=== PATIENT | male | born 1955 | race African-American/Black ===

== ENCOUNTER 2019-05-08 23:29 | Inpatient (IN) | payer MEDICAID, OTHER ==
[~2019-05-08] VITALS: Ht 172.7 cm; Wt 96.0 kg
[~2019-05-08 23:29] MED LIST: GLIP5TAB12 PO; METF-370 PO
[2019-05-09] VITALS (7 sets, daily range): BP systolic 86–143; BP diastolic 60–81
[2019-05-09 00:19] LABS: Basophils # (auto) 0.1 uL; Eosinophils # (auto) 0.3 uL; Eosinophils % (auto) 2.9 % (0.0-7.0); Hematocrit 36.6 % (41.0-53.0); Hemoglobin 11.6 g/dL (13.5-17.5); Lymphocytes # (auto) 1.7 uL; Lymphocytes % (auto) 20.2 % (10.0-50.0); Mean Corpuscular Hemoglobin 28.8 pg (28.0-32.0); Mean Corpuscular Hgb Conc. 31.6 g/dL (32.0-36.0); Mean Corpuscular Volume 91.2 fL (80.0-100.0); Monocytes % (auto) 11.1 % (0.0-12.0); Neutrophils # (auto) 5.5 uL; Neutrophils % (auto) 64.8 % (37.0-80.0); Nucleated Red Blood Cells % 0.1 %; Platelet Count (auto) 221 10^3/uL (140-450); Red Blood Cells 4.02 10^6/uL (4.5-5.90); Red Cell Distribution Width 16.2 % (11.8-14.3); White Blood Cell 8.6 10^3/uL (4.4-10.8)
[2019-05-09 00:34] LABS: Alanine Aminotransferase 136 U/L (16-61); Anion Gap 8 (5-15); Aspartate Aminotransferase 96 U/L (15-37); BUN/Creatinine Ratio 25.3; Calcium 8.2 mg/dL (8.5-10.1); Carbon Dioxide 22 mmol/L (21-32); Chloride 108 mmol/L (98-107); GFR African American 23 mL/min; GFR Non-African American 19 mL/min; Glucose 148 mg/dL (74-106); Sodium 138 mmol/L (136-145)
[2019-05-09 00:36] LABS: Blood Urea Nitrogen 89 mg/dL (7-18); Potassium 5.8 mmol/L (3.5-5.1)
[2019-05-09 00:40] LABS: Alkaline Phosphatase 261 U/L (45-117); Bilirubin, Total 0.3 mg/dL (0.2-1.0)
[2019-05-09] MEDS ORDERED: HYDROcodone-ACET 10/325MG TAB PO ONE (01:00)
[2019-05-09] MEDS ORDERED: FUROSEMIDE 20 MG/2 ML VIAL IV ONE ×2 (02:00→04:00)
[2019-05-09 02:05] LABS: INR 1.34 (0.9-1.15); Partial Thromboplastin Time 28.7 sec (23.64-32.05)
[2019-05-09] MEDS ORDERED: NITROGLYCERIN 0.4 MG SL TAB SL PRN (03:15)
[2019-05-09] MEDS ORDERED: DEXTROSE (50%) 50ML SYRG IV PRN (03:15)
[2019-05-09] MEDS ORDERED: MORPHINE SULF INJ 2 MG/ML SYRINGE 1ML IV PRN (03:15)
[2019-05-09] MEDS ORDERED: SODIUM ZIRCONIUM CYCL 10 GM PAK PO ONE (03:45)
--- NOTE | 2019-05-09 05:00 | NUR ---
Telemetry admit from [facility] admitted to Telemetry unit. Patient oriented to SHIMON YOUSIF, primary RN, unit, room 284, bed B, and unit policies regarding patient care and visiting hours. Patient now on continuous telemetry monitoring, tele box #66 and telemetry reading on arrival to unit is SR. Patient placed on bedside oxygen, weighed by bedscale and encouraged to call if they need something. Call light explained and placed within reach. Yung catheter is in place. All questions and concerns addressed, patient verbalized understanding.
[2019-05-09] MEDS: InsuLIN REG 1unit/0.01ml Soln (100units/ml) SC SCH ×4 (06:19→23:37)
[2019-05-09] MEDS: ACCU-CHEK COMFORT CURVE STRIP VI SCH ×4 (06:19→23:37)
--- NOTE | 2019-05-09 07:30 | NUR ---
Opening Shift Note Assumed care of patient, awake and alert. No S/S of distress/SOB or pain. Bed is in lowest position with 2x side rails up for safety. Call light is within reach. Instructed on POC and to call for assist PRN, will continue to monitor for changes Q1hr and PRN.
[2019-05-09] MEDS: APIXABAN 5 MG TAB PO SCH ×2 (09:18→20:46)
[2019-05-09] MEDS: PANTOPRAZOLE 40 MG TAB PO SCH (09:18)
[2019-05-09] MEDS: CARVEDILOL 3.125 MG TAB PO SCH ×2 (09:21→20:46)
--- NOTE | 2019-05-09 09:35 | NUR ---
Paged hospitalist Potassium of 6.1, paged hospitalist. Waiting for call back.
[2019-05-09] MEDS ORDERED: CALCIUM GLUC 4.65meq/50ml D5AE 50 ML IV ONE (12:45)
[2019-05-09] MEDS ORDERED: SODIUM BICARBONATE 8.4% INJ 50ML SYRINGE IV ONE (12:45)
[2019-05-09] MEDS ORDERED: ALBUTEROL SULF 2.5 MG/0.5ML(0.5%) NEB SOLN NEB ONE (12:45)
[2019-05-09] MEDS ORDERED: FUROSEMIDE 40 MG/4 ML VIAL IV ONE (12:45)
[2019-05-09] MEDS ORDERED: DEXTROSE (50%) 50ML SYRG IV ONE (12:45)
[2019-05-09] MEDS ORDERED: InsuLIN REG 1unit/0.01ml Soln (100units/ml) IV ONE (12:45)
[2019-05-09] MEDS: SODIUM ZIRCONIUM CYCL 10 GM PAK PO SCH ×2 (12:58→23:16)
[2019-05-09] MEDS ORDERED: SODIUM BICARBONATE 8.4 % INJ 50ML VIAL IV ONE (13:00)
--- NOTE | 2019-05-09 13:04 | NUR ---
Dr. Huston / nephro at bed side to see pt, doctor informed of the potassium level of 6.1, orders received, doctor discussed plan of care with pt.
[2019-05-09] MEDS ORDERED: SODIUM CHLORIDE 0.9% 500 ML IV ONE (13:15)
[2019-05-09] MEDS ORDERED: LACTULOSE 20Gm/30ML SOLN PO ONE (13:15)
[2019-05-09] MEDS ORDERED: ALBUTEROL SULF 2.5 MG/0.5ML(0.5%) NEB SOLN NEB PRN (14:45)
[2019-05-09 15:54] LABS: Anion Gap 6 (5-15); BUN/Creatinine Ratio 28.9; Calcium 8.4 mg/dL (8.5-10.1); Carbon Dioxide 24 mmol/L (21-32); Chloride 106 mmol/L (98-107); GFR African American 23 mL/min; GFR Non-African American 19 mL/min; Glucose 86 mg/dL (74-106); Potassium 5.2 mmol/L (3.5-5.1); Sodium 136 mmol/L (136-145)
[2019-05-09 16:07] LABS: Blood Urea Nitrogen 102 mg/dL (7-18)
--- NOTE | 2019-05-09 16:30 | NUR ---
Rodrigo at bedside To insert Robert catheter.
[2019-05-09 16:38] LABS: Urine Bacteria FEW /hpf (None Seen); Urine Blood 1+ /uL (Negative); Urine Mucus FEW (None Seen); Urine Specific Gravity 1.011 (1.001-1.035); Urine WBC 4 /hpf (0 - 3)
[2019-05-09] MEDS ORDERED: HEPARIN 1,000 UNITS/ml 1ML VIAL IV ONE (16:45)
[2019-05-09 16:48] LABS: Alcohol, Urine < 3.0 mg/dL (0-5); Amphetamine Screen, Urine NEGATIVE (NEGATIVE); Barbiturate Scree,Urine NEGATIVE (NEGATIVE); Benzodiazephine Screen, Urine NEGATIVE (NEGATIVE); Cannabinoid Screen, Urine NEGATIVE (NEGATIVE); Cocaine Screen, Urine NEGATIVE (NEGATIVE); Opiate Scree,Urine NEGATIVE (NEGATIVE); Phencyclidine Screen, Urine NEGATIVE (NEGATIVE)
--- NOTE | 2019-05-09 17:00 | NUR ---
IV insertion IV access obtained, via clean sterile technique by inserting 22 gauge catheter at LT UPPER CHEST after 2 attempts. IV secured properly. No trauma to site. Patient tolerated well.
[2019-05-09] MEDS ORDERED: FUROSEMIDE 40 MG/4 ML VIAL IV SCH (18:00)
--- NOTE | 2019-05-09 18:47 | NUR ---
SALINE BOLUS RUNNING AT THIS TIME, WILL ENDORSE FOR MORTGAGE BANKER TO START THE LASIX DRIP AFTER THE BOLUS PER DR. SOLORIO'S ORDERS.
[2019-05-09] MEDS ORDERED: APIX5TAB PO (19:05)
[2019-05-09] MEDS ORDERED: FURO40TA4 PO (19:05)
[2019-05-09] MEDS ORDERED: ATOR40TA52 PO (19:05)
[2019-05-09] MEDS ORDERED: CARV3.1240 PO (19:05)
--- NOTE | 2019-05-09 20:00 | NUR ---
Opening Shift Note Assumed care of patient, awake and alert. No S/S of distress/SOB or pain. Saline bolus finished. Patient started on drip medication. Instructed on POC and to call for assist PRN, will continue to monitor for changes Q1hr and PRN.
[2019-05-09] MEDS: FUROSEMIDE INJECTION 100 MG in D5W 5% 90 ML IV SCH (20:12)
--- NOTE | 2019-05-09 20:16 | NUR ---
Respiratory note: PT ASSESSED FOR PRN MED NEB TX. PT IS CURRENTLY ON 2 L/M NC: HR 84, RR 18, SPO2 100%. PT SHOWS NO S/S OF SOB OR RESPIRATORY DISTRESS. MED NEB TX NOT INDICATED AT THIS TIME. PT AWARE TO CALL RESPIRATORY IF SOB OCCURS. WILL CONTINUE TO MONITOR.
[2019-05-09] MEDS: ATORVASTATIN 20 MG TAB PO SCH (20:47)
--- NOTE | 2019-05-09 23:59 | NUR ---
HOSPITALIST PAGED BM OF PATIENT INSPECTED. BLOOD FOUND IN STOOL. PATIENT STATES THIS IS NEW. WILL INFORM HOSPITALIST. WILL AWAIT CALL BACK OR ORDERS.
[2019-05-10 05:07] VITALS: BP 141/75
[2019-05-10] MEDS: InsuLIN REG 1unit/0.01ml Soln (100units/ml) SC SCH ×3 (05:34→17:51)
[2019-05-10] MEDS: SODIUM ZIRCONIUM CYCL 10 GM PAK PO SCH ×3 (05:34→22:12)
[2019-05-10] MEDS: ACCU-CHEK COMFORT CURVE STRIP VI SCH ×3 (05:34→17:51)
[2019-05-10 07:12] LABS: Basophils # (auto) 0.1 uL; Basophils % (auto) 0.6 % (0.0-2.0); Eosinophils # (auto) 0.2 uL; Eosinophils % (auto) 2.4 % (0.0-7.0); Hematocrit 36.8 % (41.0-53.0); Hemoglobin 11.5 g/dL (13.5-17.5); Lymphocytes # (auto) 1.9 uL; Lymphocytes % (auto) 19.7 % (10.0-50.0); Mean Corpuscular Hemoglobin 29.4 pg (28.0-32.0); Mean Corpuscular Hgb Conc. 31.3 g/dL (32.0-36.0); Monocytes # (auto) 0.9 uL; Monocytes % (auto) 9.5 % (0.0-12.0); Neutrophils # (auto) 6.4 uL; Neutrophils % (auto) 67.8 % (37.0-80.0); Nucleated Red Blood Cells % 0.2 %; Platelet Count (auto) 238 10^3/uL (140-450); Red Blood Cells 3.91 10^6/uL (4.5-5.90); Red Cell Distribution Width 16.5 % (11.8-14.3); White Blood Cell 9.5 10^3/uL (4.4-10.8)
--- NOTE | 2019-05-10 07:30 | NUR ---
Opening Shift Note RECEIVED REPORT FROM NOC RN. Assumed care of patient, awake and alert. PATIENT ON OXYGEN AT 2 LPM VIA NASAL CANNULA WITH no S/S of distress/SOB or pain. BED IN LOWEST, LOCKED POSITION WITH SIDERAILS UP x2 AND CALL LIGHT WITHIN REACH. Instructed on POC and to call for assist PRN, will continue to monitor for changes Q1hr and PRN.
[2019-05-10 07:33] LABS: Calcium 8.4 mg/dL (8.5-10.1); Potassium 4.6 mmol/L (3.5-5.1)
[2019-05-10 07:37] LABS: Magnesium 2.8 mg/dL (1.6-2.6)
[2019-05-10 07:44] LABS: BUN/Creatinine Ratio 32.9; Bilirubin, Total 0.4 mg/dL (0.2-1.0); Total Protein 6.7 g/dL (6.4-8.2)
[2019-05-10 08:00] VITALS: BP 106/72
[2019-05-10] MEDS: APIXABAN 5 MG TAB PO SCH ×2 (09:33→22:11)
[2019-05-10] MEDS: PANTOPRAZOLE 40 MG TAB PO SCH (09:33)
[2019-05-10] MEDS: CARVEDILOL 3.125 MG TAB PO SCH ×2 (09:33→22:12)
[2019-05-10] MEDS: ACETAMINOPHEN 325 MG TAB PO PRN ×2 (09:39→23:05)
--- NOTE | 2019-05-10 09:48 | NUR ---
RT NOTE: PRN BREATHING TX. NOT INDICATED AT THIS TIME. NO S/S OF SOB. PT. HR 84, RR 14, POX 96% R/A. PT. AWARE TO NOTIFY RN IF BREATHING TX. IS NEEDED.
[2019-05-10] MEDS ORDERED: APIX5TAB PO (11:03)
[2019-05-10] MEDS ORDERED: FURO40TA4 PO (11:03)
[2019-05-10] MEDS ORDERED: ATOR40TA52 PO (11:03)
[2019-05-10 12:00] VITALS: BP 107/67
[2019-05-10] MEDS: FUROSEMIDE INJECTION 100 MG in D5W 5% 90 ML IV SCH (14:01)
[2019-05-10 14:09] LABS: Hepatitis B Surface Antibody Negative
[2019-05-10 14:48] LABS: Hepatitis A Total Antibody Negative
[2019-05-10 15:30] LABS: Hepatitis B Surface Antigen Negative (Negative)
[2019-05-10 15:31] LABS: Hepatitis B Core Total AB Negative; Hepatitis C Antibody Negative (Negative)
--- NOTE | 2019-05-10 15:36 | NUR ---
D/C Planning Per SS Consult for Chair Time Dialysis. Contact [facility] Ph:) Fax:( [phone]) faxed medical records. Will be following up tomorrow.
[2019-05-10 17:00] VITALS: BP 122/73
--- NOTE | 2019-05-10 19:30 | NUR ---
Opening Shift Note Assumed care of patient, awake and alert x4. Patient denies pain at this time. Patient is on 3L NC, no signs/symptoms of distress noted at this time. Instructed on plan of care and to call for assistance as needed, patient verbalized understanding. Bed is locked in lowest position, side rails x 2 are up, call light is within reach, and bed alarm is on.
[2019-05-10] MEDS: IPRATROPIUM BROM 0.5 MG/2.5ML INH SOL NEB PRN (20:07)
[2019-05-10 22:00] VITALS: BP 121/76
[2019-05-10] MEDS: ATORVASTATIN 20 MG TAB PO SCH (22:11)
[2019-05-11] MEDS: ACCU-CHEK COMFORT CURVE STRIP VI SCH ×4 (01:31→18:54)
[2019-05-11] MEDS: InsuLIN REG 1unit/0.01ml Soln (100units/ml) SC SCH ×4 (01:31→18:54)
[2019-05-11] MEDS: TEMAZEPAM 15 MG CAP PO PRN (01:41)
[2019-05-11 05:00] VITALS: BP 131/80
[2019-05-11] MEDS: SODIUM ZIRCONIUM CYCL 10 GM PAK PO SCH (05:59)
[2019-05-11] MEDS ORDERED: SODIUM CHL 0.9% 1000 ML BAG XX ONE (07:00)
[2019-05-11 07:29] LABS: Albumin 3.1 g/dL (3.4-5.0); Calcium 8.5 mg/dL (8.5-10.1); Potassium 4.3 mmol/L (3.5-5.1)
--- NOTE | 2019-05-11 07:30 | NUR ---
CLOSING SHIFT NOTE Patient is sitting on the side of the bed with even and unlabored respirations noted. Patient is on 3L NC, no signs/symptoms of distress noted at this time. Bed is locked in lowest position, side rails x 3 are up, call light is within reach, and bed alarm is on. Endorsed patient care to Kya GALVAN.
[2019-05-11 07:31] LABS: BUN/Creatinine Ratio 30.6
--- NOTE | 2019-05-11 07:44 | NUR ---
STOOL OCCULT COLLECTED AND SENT TO LAB.
[2019-05-11 07:46] LABS: Bilirubin, Total 0.4 mg/dL (0.2-1.0); Total Protein 7.2 g/dL (6.4-8.2)
--- NOTE | 2019-05-11 07:53 | NUR ---
Critical Lab notified by Ingrid of a critical lab value. BUN is 90. Trending down. MD already aware. Patient receiving dialysis today.
[2019-05-11 08:00] VITALS: BP 127/60
--- NOTE | 2019-05-11 08:20 | NUR ---
Opening Shift Note Received report on the patient. Awake lying in bed. Patient shows no signs of distress at this time. Discussed plan of care with the patient and family. Bed is in the lowest position, side rails up x2, and call light is within reach.
[2019-05-11 09:00] VITALS: BP 139/84
[2019-05-11] MEDS ORDERED: ALBUMIN 25% 100 ML IV ONE (09:45)
--- NOTE | 2019-05-11 10:57 | NUR ---
MD Discharge Appt Doctor Delvis at bedside. Ordered dialysis for today and tomorrow. Patient needs to have a follow up doctors appointment with Dr. Edmondson 1 week after discharge.
[2019-05-11] MEDS ORDERED: PROMETHAZINE HCL 25 MG/ML 1ML IV ONE (11:15)
[2019-05-11 13:00] VITALS: BP 140/85
[2019-05-11] MEDS: APIXABAN 5 MG TAB PO SCH ×2 (14:20→22:56)
[2019-05-11] MEDS: PANTOPRAZOLE 40 MG TAB PO SCH (14:21)
[2019-05-11] MEDS: CARVEDILOL 3.125 MG TAB PO SCH ×2 (14:21→22:56)
--- NOTE | 2019-05-11 14:42 | NUR ---
D/C Planning Followed up call to [facility] dialysis spoke to Marisela. Per Marisela from [facility] Pt chair time will be Tuesday, , Saturdays at 14:45 and needs to arrived 15 minutes early to [id number] [place] [address]. Addendum: 05/11/19 at 1448 by AURY ATKINS Amended: Links added.
[2019-05-11] MEDS ORDERED: GABAPENTIN 300 MG CAP PO ONE (16:15)
[2019-05-11 17:00] VITALS: BP 137/84
[2019-05-11] MEDS: FUROSEMIDE INJECTION 100 MG in D5W 5% 90 ML IV SCH (18:53)
--- NOTE | 2019-05-11 19:30 | NUR ---
Opening Shift Note Assumed care of patient. Patient awake and alert. No S/S of distress/SOB or pain. Instructed on POC and to call for assist PRN, will continue to monitor for changes. Bed locked in lowest position and bed rails up x2. Call light within reach.
--- NOTE | 2019-05-11 20:30 | NUR ---
Patient disconnected IV line from IV site and found on room air. Patient stated that he did not pull out the IV and he is not sure how it came apart. Addendum: 05/11/19 at 2342 by BRENDA IVORY RN RN Alisha nichols
--- NOTE | 2019-05-11 20:40 | NUR ---
Sitter at bedside
[2019-05-11 22:00] VITALS: BP 112/80
[2019-05-11] MEDS: ATORVASTATIN 20 MG TAB PO SCH (22:56)
[2019-05-11] MEDS: GABAPENTIN 300 MG CAP PO SCH (22:56)
--- NOTE | 2019-05-11 23:34 | NUR ---
RT NOTE PRN ASSESSMENT DONE PRN NOT INDICATED AT THIS TIME NO RESP DISTRESS NOTED
[2019-05-12] MEDS: InsuLIN REG 1unit/0.01ml Soln (100units/ml) SC SCH ×4 (02:23→18:00)
[2019-05-12] MEDS: ACCU-CHEK COMFORT CURVE STRIP VI SCH ×4 (02:23→17:22)
[2019-05-12] MEDS: GABAPENTIN 300 MG CAP PO SCH ×3 (06:13→21:01)
[2019-05-12 06:34] LABS: Potassium 3.9 mmol/L (3.5-5.1)
[2019-05-12 06:40] LABS: BUN/Creatinine Ratio 29.6; Calcium 8.1 mg/dL (8.5-10.1)
[2019-05-12 06:47] LABS: Bilirubin, Total 0.6 mg/dL (0.2-1.0); Total Protein 6.7 g/dL (6.4-8.2)
[2019-05-12] MEDS ORDERED: SODIUM CHL 0.9% 1000 ML BAG XX ONE (07:00)
--- NOTE | 2019-05-12 07:17 | NUR ---
Opening Shift Note Assumed care of patient, resting in bed with eyes closed. No S/S of distress/SOB or pain. Bed set in lowest locked position with call light within reach and side rails up x 2 for safety, will continue to monitor for changes Q1hr and PRN.
[2019-05-12 08:30] VITALS: BP 113/78
[2019-05-12] MEDS: APIXABAN 5 MG TAB PO SCH ×2 (10:00→21:01)
[2019-05-12] MEDS: CARVEDILOL 3.125 MG TAB PO SCH ×2 (10:00→21:02)
[2019-05-12] MEDS: PANTOPRAZOLE 40 MG TAB PO SCH (10:00)
--- NOTE | 2019-05-12 10:15 | NUR ---
MD at bedside Dr. Crystal, updated pt on POC.
--- NOTE | 2019-05-12 12:49 | NUR ---
NUTRITION ASSESSMENT NOTES Please refer to link notes of nutrition screen form filed under the intervention section of the plan of care for further details. Est. Needs: 1700 kcal to 2250 kcal (15-20 kcal/kgBW), 56 gms to 70 gms pro (0.8-1.0 gms/kgIBW: 70 kg). Will continue to monitor pertinent labs and reassess nutrient need prn Thank you. Addendum: 05/12/19 at [address] Amended: Links added.
[2019-05-12] MEDS: FUROSEMIDE INJECTION 100 MG in D5W 5% 90 ML IV SCH (14:32)
--- NOTE | 2019-05-12 18:44 | NUR ---
PT ASSESSED, SAT 97% ON 2L NC, NO SOB NOTED.
--- NOTE | 2019-05-12 19:29 | NUR ---
Patient disconnected from IV lasix drip: Patient threatening to rip iv and Yung out of not removed. Attempted to reeducate oatient of the need for the medication but refused and stated aggressively "I understand that but if you do not remove this right now im going to rip it out myself. I am going home and you cannot stop me." Disconnected patient from IV drip at this time. Patient continues to be agitated and anxious. Wanting to leave AMA with no ride. Will call patients family.
--- NOTE | 2019-05-12 19:30 | NUR ---
PATIENT AGITATED: MADE AWARE BY SITTER THAT PATIENT HAS BECOME INCREASINGLY AGITATED AND ATTEMPTED TO PULL OUT IV AND COPELAND CATHETER AND IS THREATENING TO LEAVE IMMEDIATELY. WENT TO SEE PATIENT AND PATIENT IS SAYING " Take out tis IV right now, Im out of here and im leaving Im not staying here." ATTEMPTED TO REORIENT AND EDUCATE PATIENT ABOUT WHERE IS HE AT AND WHY HE IS BEING TREATED. PATIENT IS DEMANDING TO SEE HIS WALKING THE HALLS LOOKING FOR AN EXIT. CALLED PATIENTS AND EXPLAINED THE SITUATION TO . REQUESTING FOR PATIENT TO STAY, SPOKE TO BUT PATIENT CONTINUES TO BE AGITATED AND THREATENING TO LEAVE. SPOKE TO CHARGE NURSE OVER THE PHONE AND IS TO SEND DAUGHTER TO ASSISTANT PROFESSOR OF ART THE PATIENT. EXPLAINED TO PATIENT THAT DAUGHTER SHOULD BE COMING TO PICK HIM UP AND TO WAIT IN THE ROOM IN THE MEAN TIME. PATIENT VERBALIZED UNDERSTANDING AND WAS ESCORTED TO THE ROOM.
--- NOTE | 2019-05-12 21:00 | NUR ---
Patient complied to being reconnected back to IV lasix drip. Family at the bedside. Patient resting in bed with breaths even and unlabored. Patient still wanting to go home,this rn reoriented and educated the need of staying in hospital for treatment. Patient verbalized understanding but still grumpy.
[2019-05-12] MEDS: ATORVASTATIN 20 MG TAB PO SCH (21:02)
[2019-05-12] MEDS: TEMAZEPAM 15 MG CAP PO PRN (21:04)
[2019-05-12 22:00] VITALS: BP 128/71
--- NOTE | 2019-05-12 22:02 | NUR ---
Patient refused blood pressure reassessment: Patient refusing blood pressure reassessment at this time. Keeps pulling arm away wanting to sleep and does not want to be touched. Attempted to educate patient but patient refused
[2019-05-13] VITALS (8 sets, daily range): BP systolic 101–128; BP diastolic 62–71
--- NOTE | 2019-05-13 00:24 | NUR ---
PATIENT REFUSED BLOOD SUGAR CHECK: Patient is resisting and pulling arm away when attempting blood sugar check. Patient wants to sleep and is agitated. Attempted to educate patient about the need for blood sugar check but patient remained dismissive choosing to go to bed.
--- NOTE | 2019-05-13 02:15 | NUR ---
PATIENT AGITATED, ATTEMPTING TO PULL OUT IVS, THREATENING TO LEAVE: PATIENT UNSTABLE ATTEMPTING TO STAND UP AT THE BESIDE WITH UNSTEADY GAIT AND FELL BACK INTO BED. THREATENING TO PULL OUT IV LINE AND WALK OUT OF THE HOSPITAL GOING HOME. PATIENT STATED "Im getting out of here, dont you touch me. Im walking out. Where are my keys, im driving home." ATTEMPTED TO REEDUCATE THE PATIENT AND REORIENT THE PATIENT, PATIENT CONTINUES TO BE AGITATED AND INSISTS ON LEAVING DESPITE CURRENT CONDITION. CHARGE NURSE AT THE BEDSIDE ATTEMPTING TO CALM PATIENT DOWN. PATIENT TAKEN OFF LASIX DRIP AFTER PATIENT THREATENED TO RIP OUT IV. PATIENT RESISTIVE TO CARE. TO CALL HOSPITALIST.
--- NOTE | 2019-05-13 02:20 | NUR ---
PATIENT AGITATED, HOSPITALIST PAGED AND CALLED BACK: MADE HOSPITALIST KRISTA AWARE THAT THE PATIENT IS AGITATED AND CONFUSED AND WANTING TO GO HOME. THREATENING TO PULL OUT IV AND WALKING OUT OF THE HOSPITAL. PATIENT THREATENS TO GET COMBATIVE. HOSPITALIST ORDERED HALDOL 0.5 MG IM PRN [id number] FOR AGITATION. HOSPITALIST STATED THAT IF THAT DOES NOT WORK AFTER THE FIRST TIME TO DISCONTINUE ORDER AND USE HALDOL 1MG IM PRN FOR AGITATION [id number]. TO PLACED ORDERS.
[2019-05-13] MEDS ORDERED: HALOPERIDOL LACTATE 5 MG/ML INJ VIAL IM PRN (02:30)
--- NOTE | 2019-05-13 02:40 | NUR ---
CALLED HOSPITALIST FOR CLARIFICATION: CALLED HOSPITALIST TO CLARIFY HALDOL ORDER. HOSPITALIST KRISTA CONFIRMED HALDOL 0.5MG IM [id number] PRN. IF THAT DOESNT WORK HALDOL 1MG IM [id number] PRN FOR AGITATION
--- NOTE | 2019-05-13 04:25 | NUR ---
PATIENT THREATENING STAFF: PATIENT SITTING AT THE SIDE OF THE BED STATING "Im going to go home. Im tired of playing these games. You think Im playing but Im not. All hell is going to break loose if im not out of here by a certain time. You watch. You cant keep me here. All hell is going to break loose" PATIENT THREATENING THE STAFF DESPITE REORIENTATION.
--- NOTE | 2019-05-13 06:00 | NUR ---
Left message to : Called and left message to to update on patients status.
[2019-05-13] MEDS: ACCU-CHEK COMFORT CURVE STRIP VI SCH ×4 (06:39→18:10)
[2019-05-13] MEDS: GABAPENTIN 300 MG CAP PO SCH ×3 (06:39→22:21)
[2019-05-13] MEDS: InsuLIN REG 1unit/0.01ml Soln (100units/ml) SC SCH ×5 (06:44→23:59)
--- NOTE | 2019-05-13 07:19 | NUR ---
Opening Shift Note Assumed care of patient, awake and alert. No S/S of distress/SOB or pain. Instructed on POC and to call for assist PRN, will continue to monitor for changes Q1hr and PRN. Bed set in lowest locked position with side rails up x 2 for safety, call light within reach.
[2019-05-13 07:25] LABS: Basophils # (auto) 0 uL; Basophils % (auto) 0.5 % (0.0-2.0); Eosinophils # (auto) 0.1 uL; Eosinophils % (auto) 1.1 % (0.0-7.0); Hematocrit 35.7 % (41.0-53.0); Hemoglobin 11.4 g/dL (13.5-17.5); Lymphocytes # (auto) 0.6 uL; Lymphocytes % (auto) 8.3 % (10.0-50.0); Mean Corpuscular Hemoglobin 28.8 pg (28.0-32.0); Mean Corpuscular Hgb Conc. 31.9 g/dL (32.0-36.0); Mean Corpuscular Volume 90.4 fL (80.0-100.0); Monocytes # (auto) 0.5 uL; Monocytes % (auto) 7.9 % (0.0-12.0); Neutrophils # (auto) 5.5 uL; Neutrophils % (auto) 82.2 % (37.0-80.0); Platelet Count (auto) 214 10^3/uL (140-450); Red Blood Cells 3.95 10^6/uL (4.5-5.90); Red Cell Distribution Width 15.8 % (11.8-14.3); White Blood Cell 6.7 10^3/uL (4.4-10.8)
[2019-05-13 07:38] LABS: BUN/Creatinine Ratio 24.7; Calcium 8.1 mg/dL (8.5-10.1); Potassium 4.7 mmol/L (3.5-5.1)
[2019-05-13] MEDS: CARVEDILOL 3.125 MG TAB PO SCH ×2 (09:06→22:21)
[2019-05-13] MEDS: PANTOPRAZOLE 40 MG TAB PO SCH (09:06)
[2019-05-13] MEDS: APIXABAN 5 MG TAB PO SCH ×2 (09:06→22:21)
[2019-05-13] MEDS: IPRATROPIUM BROM 0.5 MG/2.5ML INH SOL NEB PRN (09:10)
--- NOTE | 2019-05-13 12:20 | NUR ---
Patient had difficulty swallowing While eating lunch, patient had an episode of not being able to fully swallow bite taken. Family was at bedside and reported patient was in the middle of talking and eating meal. Upon entering room patient was SOB, patient was able to extract food and instructed patient on deep breathing. Patient O2 sat: 96%, 3L/min NC applied, and bed is in high-Yoon's. Observed patient after event, patient is now stable and no signs and symptoms of distress/SOB noted. Will continue to monitor.
[2019-05-13] MEDS: FUROSEMIDE INJECTION 100 MG in D5W 5% 90 ML IV SCH (13:40)
--- NOTE | 2019-05-13 16:10 | NUR ---
MD at bedside Dr. Vital, updated pt and family on POC.
--- NOTE | 2019-05-13 16:25 | NUR ---
RT NOTE: WENT TO PTS ROOM FOR RA ABG, PT WAS TAKEN OFF OF OXYGEN AT THIS TIME. PT WAS ON PORTABLE PULSE OX SPO2 DID NOT GO BELOW 95%, UNABLE TO OBTAIN ABG AT THIS TIME DUE TO SPO2. WILL CONTINUE TO MONITOR PT.
--- NOTE | 2019-05-13 18:30 | NUR ---
Left heart catheterization cancelled per MD. Spoke with Dr. Roman, procedure due to patient having a recent angiogram at [facility].
--- NOTE | 2019-05-13 18:41 | NUR ---
Paged Dr. Randall Unhairing Machine Operator, if MD would like to proceed with patient to receive dialysis tomorrow, because left heart cath was cancelled.
--- NOTE | 2019-05-13 19:25 | NUR ---
Endorsed care to NOC RN.
[2019-05-13] MEDS: ACETAMINOPHEN 325 MG TAB PO PRN (19:33)
--- NOTE | 2019-05-13 19:56 | NUR ---
RT NOTE: PT ASSESSED BY RT @ THIS TIME. PT FOUND ON .5L NC, SPO2 97%, HR 98, RR 22, CLEAR BS. PT TAKEN OFF NASAL CANNULA @ THIS TIME. EXPLAINED TO PT THAT NC IS NOT NEEDED @ THIS TIME. ADVISED SITTER @ BEDSIDE TO PAGE FOR RT IF SPO2 IS LOW OFF NC. NO SOB OR DISTRESS NOTED @ THIS TIME.
--- NOTE | 2019-05-13 20:20 | NUR ---
Opening Shift Note Assumed care of patient, awake and alert. No S/S of distress/SOB. Patient is on 2 liters of oxygen via nasal cannula. Patient is alert and oriented x3, patient is not oriented to time. Sitter is at bedside. Patient's Robert catheter dressing is dry,clean, and intact. Patient Yung is intact, no kinks in tubing, bag below level of bladder, urine is light zoya and clear. Instructed on POC and to call for assist PRN, will continue to monitor for changes Q1hr and PRN.
[2019-05-13] MEDS: TEMAZEPAM 15 MG CAP PO PRN (22:21)
[2019-05-13] MEDS: ATORVASTATIN 20 MG TAB PO SCH (22:21)
--- NOTE | 2019-05-14 04:30 | NUR ---
Patient pulled Robert cath received phone call patient pulled Robert cath. Entered patients room, Robert catheter on bedside table, dressing to left upper chest C/D/I, no bleeding noted, site asymptomatic, reinforced dressing. Patient reported he pulled catheter because "it was itching. Tita Shi CNA, reports patient pulled Quniton catheter while CXR was being taken in room. Will notify MD and continue care. Addendum: 05/14/19 at 0748 by Nena Dubon RN RN actual occurrence at 0530 Addendum: 05/14/19 at 0750 by Nena Dubon RN RN dressing to right upper chest, not left.
[2019-05-14 04:37] VITALS: BP 115/67
--- NOTE | 2019-05-14 05:05 | NUR ---
Paged Hospitalist RE: pain medication patient reports right shoulder and back pain 02/03. Received new order for [place] 5/325mg 2 tabs PO q6hrs PRN, read back and verified, will carry out orders and continue care.
[2019-05-14 05:43] LABS: Basophils # (auto) 0 uL; Basophils % (auto) 0.7 % (0.0-2.0); Eosinophils # (auto) 0.2 uL; Eosinophils % (auto) 2.8 % (0.0-7.0); Hematocrit 34.7 % (41.0-53.0); Hemoglobin 11.3 g/dL (13.5-17.5); Lymphocytes # (auto) 1.1 uL; Lymphocytes % (auto) 15.2 % (10.0-50.0); Mean Corpuscular Hemoglobin 29.5 pg (28.0-32.0); Mean Corpuscular Hgb Conc. 32.6 g/dL (32.0-36.0); Mean Corpuscular Volume 90.7 fL (80.0-100.0); Monocytes # (auto) 0.9 uL; Monocytes % (auto) 12.5 % (0.0-12.0); Neutrophils # (auto) 5.2 uL; Neutrophils % (auto) 68.8 % (37.0-80.0); Platelet Count (auto) 200 10^3/uL (140-450); Red Blood Cells 3.83 10^6/uL (4.5-5.90); Red Cell Distribution Width 15.6 % (11.8-14.3); White Blood Cell 7.6 10^3/uL (4.4-10.8)
--- NOTE | 2019-05-14 05:45 | NUR ---
Wound Photo Taken of left calf. Noted minimal blood on bedding, assessed bilateral legs, noted skin tear to left calf. Cleansed with NS and pat dry with sterile gauze.
[2019-05-14] MEDS: HYDROcodone-ACET 5/325MG TAB PO PRN (05:46)
[2019-05-14] MEDS: GABAPENTIN 300 MG CAP PO SCH ×3 (05:47→21:48)
[2019-05-14] MEDS: InsuLIN REG 1unit/0.01ml Soln (100units/ml) SC SCH ×4 (05:52→23:21)
[2019-05-14] MEDS: ACCU-CHEK COMFORT CURVE STRIP VI SCH ×5 (05:53→23:20)
[2019-05-14 05:58] LABS: % Iron Saturation 8.6 % (20-55)
[2019-05-14 06:02] LABS: BUN/Creatinine Ratio 24.6; Calcium 8.1 mg/dL (8.5-10.1); Phosphorus 2.8 mg/dL (2.5-4.90); Potassium 4.8 mmol/L (3.5-5.1)
--- NOTE | 2019-05-14 06:05 | NUR ---
Paged HD Nephrology MD Wetzel RE: Patient pulled Robert cath/Cancelled LHC Spoke with Nicole from answering service. Awaiting call back. Will continue care.
--- NOTE | 2019-05-14 06:55 | NUR ---
Received call back from Rashard updated on patient status, no new orders. Per MD, no dialysis today, will consult with Dr. Marie and patient regarding new Robert catheter placement. Will continue care.
[2019-05-14] MEDS ORDERED: SODIUM CHL 0.9% 1000 ML BAG XX ONE (07:00)
--- NOTE | 2019-05-14 07:00 | NUR ---
Closing Note patient resting in bed on room air with even and unlabored respirations, no s/s of distress. Dressing to left upper chest CDI. IV intact and patent. Sitter at bedside. Endorsed care to day shift RN. Addendum: 05/14/19 at 0750 by Nena Dubon RN RN dressing to right upper chest, not left.
--- NOTE | 2019-05-14 08:51 | NUR ---
PT ASSESSED FOR PRN HHN TX. PT IS ON ROOM AIR, SPO2 92%, HR 84, RR 18. NO S/S OF RESPIRATORY DISTRESS. PRN NOT INDICATED AT THIS TIME. WILL CONTINUE TO MONITOR.
[2019-05-14 08:54] VITALS: BP 107/58
[2019-05-14] MEDS: CARVEDILOL 3.125 MG TAB PO SCH ×2 (09:47→21:49)
[2019-05-14] MEDS: PANTOPRAZOLE 40 MG TAB PO SCH (09:47)
[2019-05-14] MEDS: APIXABAN 5 MG TAB PO SCH ×2 (09:47→21:49)
[2019-05-14] MEDS ORDERED: ALBUMIN 25% 50 ML IV ONE ×2 (12:15→22:00)
[2019-05-14] MEDS ORDERED: FUROSEMIDE INJECTION 500 MG in D5W 5% 450 ML IV SCH ×2 (12:15→14:15)
--- NOTE | 2019-05-14 13:28 | NUR ---
PAGED DR. AQUINO IN REGARDS TO ASHLEE ZUNIGA.
--- NOTE | 2019-05-14 14:00 | NUR ---
LASIX ORDER DR. AQUINO WANTS TO HOLD PO TORSEMIDE AND SPIROLACTONE AND CONTINUE WITH IV LASIX. TO EVALUATE PATIENTS DIURESIS.
[2019-05-14 17:00] VITALS: BP 98/62
--- NOTE | 2019-05-14 19:30 | NUR ---
Opening Shift Note Assumed care of patient, awake and alert oriented x3. No S/S of distress/SOB or pain noted. Sitter at the bed side. Bed is in lowest locked position with bedrails up x2 and call light is within reach of the patient. Instructed on POC and to call for assist PRN. Educated patient that they well be NPO after midnight. Patient verbalized understanding. Running 20ml/hr Lasix drip continuous through iv line.
[2019-05-14] MEDS ORDERED: EPOETIN ALFA 10,000 UNIT/1 ML VIAL SC ONE (21:00)
[2019-05-14] MEDS: TEMAZEPAM 15 MG CAP PO PRN (21:47)
[2019-05-14] MEDS: ATORVASTATIN 20 MG TAB PO SCH (21:48)
[2019-05-14 22:00] VITALS: BP 114/75
--- NOTE | 2019-05-14 22:15 | NUR ---
Respiratory note: PT ASSESSED FOR PRN MED NEB TX. PT IS CURRENTLY ON ROOM AIR: HR 84, RR 18, SPO2 94%. PT SHOWS NO S/S OF SOB OR RESPIRATORY DISTRESS. MED NEB TX NOT INDICATED AT THIS TIME. PT AWARE TO HAVE RT PAGED IF SOB OCCURS. WILL CONTINUE TO MONITOR.
[2019-05-15] VITALS (7 sets, daily range): BP systolic 105–116; BP diastolic 63–74
[2019-05-15] MEDS: HYDROcodone-ACET 5/325MG TAB PO PRN (02:14)
[2019-05-15] MEDS: GABAPENTIN 300 MG CAP PO SCH ×3 (05:06→22:49)
[2019-05-15 05:23] LABS: Basophils # (auto) 0 uL; Basophils % (auto) 0.5 % (0.0-2.0); Eosinophils # (auto) 0.4 uL; Eosinophils % (auto) 4.6 % (0.0-7.0); Hematocrit 33.4 % (41.0-53.0); Hemoglobin 10.8 g/dL (13.5-17.5); Lymphocytes # (auto) 1.9 uL; Lymphocytes % (auto) 24.6 % (10.0-50.0); Mean Corpuscular Hemoglobin 29.2 pg (28.0-32.0); Mean Corpuscular Hgb Conc. 32.3 g/dL (32.0-36.0); Mean Corpuscular Volume 90.2 fL (80.0-100.0); Monocytes % (auto) 13.1 % (0.0-12.0); Neutrophils # (auto) 4.4 uL; Neutrophils % (auto) 57.2 % (37.0-80.0); Nucleated Red Blood Cells % 0.1 %; Platelet Count (auto) 203 10^3/uL (140-450); Red Cell Distribution Width 15.7 % (11.8-14.3); White Blood Cell 7.7 10^3/uL (4.4-10.8)
[2019-05-15 05:35] LABS: INR 1.36 (0.9-1.15); Partial Thromboplastin Time 35.3 sec (23.64-32.05)
[2019-05-15 05:42] LABS: Calcium 8.2 mg/dL (8.5-10.1); Potassium 4.4 mmol/L (3.5-5.1)
[2019-05-15] MEDS: InsuLIN REG 1unit/0.01ml Soln (100units/ml) SC SCH ×3 (06:00→18:12)
[2019-05-15] MEDS: ACCU-CHEK COMFORT CURVE STRIP VI SCH ×3 (06:05→17:00)
--- NOTE | 2019-05-15 06:25 | NUR ---
Respiratory note: ROUTINE PRN MN TX CHECK. HR 75, RR 18, POX 95% ON 2L NC, BREATH SOUNDS ARE CLEAR. NO SOB OR DISTRESS NOTED.PT WAS NOTIFY TO HAVE RT PAGE FOR TX.
[2019-05-15] MEDS ORDERED: SPIRONOLACTONE 25 MG TAB PO SCH (10:00)
[2019-05-15] MEDS ORDERED: TORSEMIDE 20 MG TAB PO SCH (10:00)
[2019-05-15] MEDS: DIGOXIN 0.125 MG TAB PO SCH (11:34)
[2019-05-15] MEDS: APIXABAN 5 MG TAB PO SCH ×2 (11:34→22:49)
[2019-05-15] MEDS: PANTOPRAZOLE 40 MG TAB PO SCH (11:35)
[2019-05-15] MEDS: CARVEDILOL 3.125 MG TAB PO SCH ×2 (11:35→22:55)
--- NOTE | 2019-05-15 14:34 | NUR ---
Nutrition Follow-up Notes Wt.: 95.5 kg as of yesterday. Pt's on oxygen via nasal cannula, immediate family members at bedside, denies any discomfort except for mild SOB during rounds this morning. Pt states that he usually weighs around 180 lbs, denies any significant weight change few months well logging captain. Pt's diabetic, takes oral DM meds and insulin shots prn based on sliding scale, usually has good appetite, eat meals regularly, NKFA and not into any special diets well logging captain. Pt's currently on Renal Specific: 70 gms pro, 2 gms Na, Consistent Standard Carb: 60 gms/meal, Cardiac: 2 gms Na, Low Chol, Low Fat diet with adequate PO intake aeb 80% ave. consumed meals (x6) in last 2.5 days. Provide verbal and written nutrition educ. re: current therapeutic diet as well as FDI for Lasix and he verbalized understanding. Noted pt's NPO after midnight with active Radiologist, Wound and Cardiology consults. Est. Needs: 1700 kcal to 2250 kcal (15-20 kcal/kgBW), 56 gms to 70 gms pro (0.8-1.0 gms/kgIBW: 70 kg). Will continue to monitor pertinent labs and reassess nutrient need prn Labs: Gluc 153 H, Na 134 L, BUN 79 H, Cr 2.93 H, Ca 8.2 L; HbA1c 8.1 H Skin: Zbigniew scale 20, low risk, pt's left buttock skin tear per full fashioned garment knitter. GI: Pt had 2x BM this morning per full fashioned garment knitter. PES: Altered nutrition related lab values r/t current/chronic medical condition aeb elev. renal labs, HbA1c, LFTs, hyperbilirubinemia, hypocalcemia Obesity r/t food intake more than body requirement aeb 163% IBW, BMI 28.2 kg/m2 and increased body adiposity Will continue to monitor PO intake/NPO status, skin status, pertinent labs and weight trend. F/u in 3 to 5 days. Rec.: 1.) Resume oral diet when medically appropriate 2.) Continue close supervision during meals. 3.) Consider daily MVI with minerals and Asc acid 500 mgs BID. 4.) If Albumin continues trending down, consider Prostat 1 pkt BID. 5.) Refer pt to CDE/RD for further nutrition education and weight monitoring upon discharge. 6.) Continue current plan of care.
[2019-05-15] MEDS ORDERED: TORSEMIDE 20 MG TAB PO ONE (14:45)
[2019-05-15] MEDS ORDERED: SPIRONOLACTONE 25 MG TAB PO ONE (14:45)
--- NOTE | 2019-05-15 16:42 | NUR ---
assessment Patient is a 63 year old male who is answering appropriately. Prior to admission patient lived home with family and functioned with assistance of his Sanjay. Patient informed me his PCP is Dr Dyer. Patient informed me he has a fww for home use. Patients dialysis has been set up with [facility] dialysis on Tue. Patient may benefit from home health safety on discharge. Per patient he will return home to his prior living arrangements post discharge and family will transport him home. I informed patient he has a right to speak to a social insurance adviser regarding all care. I informed patient he has a right to participate in any and all discharge planning. Patient has a POA and advanced directive. Patient verbalized understanding and agreed to discharge plan home. Addendum: 05/15/19 at 1646 by Iesha ATKINS Amended: Links added.
--- NOTE | 2019-05-15 18:20 | NUR ---
Respiratory note: AT BEDSIDE TO ASSESS PT FOR PRN TX. BS ARE CLEAR T/O, POX 98-97% ON RA. HR 97-100. RR 18-20. RT NAME AND PAGER ASSIGNMENT WRITTEN ON PTS ROOM BOARD. WILL CONTINUE TO MONITOR NEEDED. AIRFRAME DESIGN ENGINEER AT BEDSIDE.
--- NOTE | 2019-05-15 19:02 | NUR ---
Opening Shift Note Received report from day shift nurse. Patient is awake, alert and orientated x 4. No S/S of distress/SOB or pain. Sitter is at bedside. Patient left upper chest dressing is clean, dry, and intact with no drainage. Bed is in lowest position with side rails up x 2. Bed brakes are locked and call light is with in reach. HOB is 30 degrees. Yung catheter is in place, patent, draining and below bladder. Instructed on POC and to call for assist PRN, will continue to monitor for changes Q1hr and PRN.
[2019-05-15] MEDS: ATORVASTATIN 20 MG TAB PO SCH (22:49)
[2019-05-15] MEDS: TEMAZEPAM 15 MG CAP PO PRN (22:49)
[2019-05-16] MEDS: ACCU-CHEK COMFORT CURVE STRIP VI SCH ×4 (00:01→16:55)
[2019-05-16] MEDS: InsuLIN REG 1unit/0.01ml Soln (100units/ml) SC SCH ×4 (00:17→16:55)
[2019-05-16] MEDS: HYDROcodone-ACET 5/325MG TAB PO PRN (00:17)
[2019-05-16 05:00] VITALS: BP 117/65
[2019-05-16] MEDS: GABAPENTIN 300 MG CAP PO SCH ×2 (05:44→13:56)
[2019-05-16 06:25] LABS: Potassium 4.2 mmol/L (3.5-5.1)
[2019-05-16 06:30] LABS: Albumin 3.2 g/dL (3.4-5.0); BUN/Creatinine Ratio 30.3; Bilirubin, Direct 0.2 mg/dL (0-0.2); Bilirubin, Total 0.4 mg/dL (0.2-1.0); Calcium 8.3 mg/dL (8.5-10.1); Total Protein 6.4 g/dL (6.4-8.2)
--- NOTE | 2019-05-16 06:40 | NUR ---
Respiratory note: Assessed pt for prn medneb tx. HR 75, RR 16, POX 97% on 2L NC. Breath sounds clear throughout. No s/s of respiratory distress noted. Pt denies any SOB. Medneb tx not indicated at this time. Advised pt to call for RT if feeling SOB. Noc shift RN at bedside and aware as well.
--- NOTE | 2019-05-16 07:24 | NUR ---
CLOSING NOTES ENDORSED CARE TO DAY SHIFT NURSEANDREA.
[2019-05-16 08:58] VITALS: BP 101/70
[2019-05-16] MEDS: APIXABAN 5 MG TAB PO SCH (09:19)
[2019-05-16] MEDS: PANTOPRAZOLE 40 MG TAB PO SCH (09:19)
[2019-05-16] MEDS: CARVEDILOL 3.125 MG TAB PO SCH (09:19)
[2019-05-16] MEDS: DIGOXIN 0.125 MG TAB PO SCH (09:19)
[2019-05-16] MEDS ORDERED: SPIRONOLACTONE 25 MG TAB PO SCH (10:00)
[2019-05-16] MEDS ORDERED: TORSEMIDE 20 MG TAB PO SCH (10:00)
--- NOTE | 2019-05-16 12:49 | NUR ---
PER DR GAINES, PT WILL NOT HAVE THE DIALYSIS CATH PLACED. ORDER TO BE CANCELLED. MANAGER FIBER AWARE.
[2019-05-16] MEDS ORDERED: LIDOCAINE 2%HCL (LOCAL ANESTH.) INJ 20ML MDV ONE (12:56)
[2019-05-16 13:00] VITALS: BP 130/67
[2019-05-16] MEDS ORDERED: SPIR25TA88 PO (15:03)
[2019-05-16] MEDS ORDERED: TORS20TA19 PO (15:03)
[2019-05-16] MEDS ORDERED: PANT40T PO (15:03)
--- NOTE | 2019-05-16 15:10 | NUR ---
PT HAS BEEN ON ROOM AIR SINCE THIS MORNING, PULSE OX 95-97%. AMBULATED IN HALLWAYS WITH PHYSICAL THERAPY AND ROLLING WALKER. NO SOB NOTED
--- NOTE | 2019-05-16 15:20 | NUR ---
Respiratory note: At bedside for room air ABG. Patient on room air POX 95%. Sitter at bedside notified me pt has been off O2 at least 3 hours. Ambulated with physical therapy earlier today on room air with POX 96%. Pt says he had no complaints of SOB during ambulation, and none at rest at this time. Notified Dr. Grimm, ABG order cancelled. COLE hauser.
[2019-05-16] MEDS ORDERED: DIGO0.1238 PO (15:29)
--- NOTE | 2019-05-16 16:40 | NUR ---
Discharge planning per consult, patient has orders for home health eval, referral sent to [facility], acceptance pending; and [facility] for auth. If patient is medically cleared, they are okay to dc home. Will follow up on 05.17.19 for acceptance and auth. Addendum: 05/17/19 at 1625 by OTTO FANG Received a call from Lily at [facility] advising that they will accept this patient onto services and start of care will be within 24-48 hours.
[2019-05-16 17:00] VITALS: BP 131/67
--- NOTE | 2019-05-16 18:42 | NUR ---
DISCHARGE INSTRUCTIONS GIVEN TO PT. VERBALIZED UNDERSTANDING. ALL APPROPRIATE PAPERWORK SIGNED. MEDICATIONS GOTTEN FROM [facility]. PT DISCHARGED HOME WITH FAMILY.
== END 2019-05-16 18:40 | disposition home health service (06) | DRG 133 ==
LOC: EDBD 23:29 → ER 23:35 → TELE 23:36 → TELE-WESTW 05-09 04:59
PROVIDERS: ADMIT Nurse Practitioner; ATTEND Internal Medicine
PROC: 5A1D70Z Performance of Urinary Filtration, Intermittent, Less than 6 Hours Per Day (ICD-10-PCS; principal; 2019-05-11)
PROC: 5A1D70Z Performance of Urinary Filtration, Intermittent, Less than 6 Hours Per Day (ICD-10-PCS; 2019-05-12)
DX: J96.00 Acute respiratory failure, unspecified whether with hypoxia or hypercapnia (principal); I50.43 Acute on chronic combined systolic (congestive) and diastolic (congestive) heart failure; D68.9 Coagulation defect, unspecified; E11.22 Type 2 diabetes mellitus with diabetic chronic kidney disease; N17.9 Acute kidney failure, unspecified; N18.4 Chronic kidney disease, stage 4 (severe); E11.65 Type 2 diabetes mellitus with hyperglycemia; I42.9 Cardiomyopathy, unspecified; E87.5 Hyperkalemia; I13.0 Hypertensive heart and chronic kidney disease with heart failure and stage 1 through stage 4 chronic kidney disease, or unspecified chronic kidney disease; J44.9 Chronic obstructive pulmonary disease, unspecified; E66.9 Obesity, unspecified; D63.8 Anemia in other chronic diseases classified elsewhere; E78.5 Hyperlipidemia, unspecified; F12.90 Cannabis use, unspecified, uncomplicated; F17.210 Nicotine dependence, cigarettes, uncomplicated; I08.1 Rheumatic disorders of both mitral and tricuspid valves; K21.9 Gastro-esophageal reflux disease without esophagitis; K72.90 Hepatic failure, unspecified without coma; N40.0 Benign prostatic hyperplasia without lower urinary tract symptoms; Z82.49 Family history of ischemic heart disease and other diseases of the circulatory system; Z86.718 Personal history of other venous thrombosis and embolism; Z83.3 Family history of diabetes mellitus; Z99.2 Dependence on renal dialysis; Z79.899 Other long term (current) drug therapy; Z68.32 Body mass index [BMI] 32.0-32.9, adult; Z99.81 Dependence on supplemental oxygen; Z71.6 Tobacco abuse counseling; Z79.01 Long term (current) use of anticoagulants
CPT/HCPCS: 36415; 36600; 71045; 78582; 80048; 80053; 80061; 80076; 80162; 80307; 81001; 82270; 82728; 82805; 82962; 83036; 83540; 83550; 83735; 83880; 84100; 84132; 84484; 85025; 85379; 85610; 85730; 86704; 86706; 86708; 86803; 87081; 87340; 90935; 93005; 93306; 93970; 94640; 96361; 96365; 96375; G0378; J0610; J1642; J1815; J7060; P9047

== ENCOUNTER 2019-10-18 13:58 | Inpatient (IN) | payer MEDICAID ==
[~2019-10-18] VITALS: Ht 172.7 cm; Wt 98.2 kg
[~2019-10-18 13:58] MED LIST changes: +APIX5TAB PO; +ATOR40TA52 PO; +CARV3.1240 PO; +ERGO2000 PO; +FURO40TA4 PO; +GABA100C9 PO; -GLIP5TAB12 PO; +HYDR10TA26 PO; -METF-370 PO; +PANT40T PO; +TAMS1CAP25 PO
[2019-10-18 14:41] LABS: Basophils # (auto) 0 10 ^3/uL (0-0.2); Basophils % (auto) 0.5 % (0.0-2.0); Eosinophils # (auto) 0.2 10 ^3/uL (0-0.8); Hematocrit 34.6 % (41.0-53.0); Hemoglobin 10.7 g/dL (13.5-17.5); Lymphocytes # (auto) 1.1 10 ^3/uL (0.4-5.4); Lymphocytes % (auto) 11.8 % (10.0-50.0); Mean Corpuscular Hemoglobin 27.3 pg (28.0-32.0); Mean Corpuscular Hgb Conc. 30.9 g/dL (32.0-36.0); Mean Corpuscular Volume 88.4 fL (80.0-100.0); Monocytes % (auto) 10.8 % (0.0-12.0); Neutrophils # (auto) 6.7 10 ^3/uL (1.6-8.6); Neutrophils % (auto) 74.9 % (37.0-80.0); Nucleated Red Blood Cells % 0.3 %; Platelet Count (auto) 221 10^3/uL (140-450); Red Blood Cells 3.91 10^6/uL (4.5-5.90); Red Cell Distribution Width 18.5 % (11.8-14.3); White Blood Cell 8.9 10^3/uL (4.4-10.8)
[2019-10-18 14:47] LABS: Albumin 3.3 g/dL (3.4-5.0); Potassium 3.9 mmol/L (3.5-5.1)
[2019-10-18 14:54] LABS: Bilirubin, Total 0.7 mg/dL (0.2-1.0)
[2019-10-18] MEDS ORDERED: FUROSEMIDE 20 MG/2 ML VIAL ONE ×2 (14:55→18:03)
[2019-10-18] MEDS ORDERED: FUROSEMIDE 40 MG/4 ML VIAL IV ONE ×2 (15:00→17:45)
[2019-10-18 16:01] LABS: Urine Bacteria NONE SEEN /hpf (None Seen); Urine Blood 1+ /uL (Negative); Urine Hyaline Cast FEW /lpf (0 - 2); Urine Specific Gravity 1.009 (1.001-1.035); Urine WBC 1 /hpf (0 - 3)
[2019-10-18] MEDS ORDERED: NITROGLYCERIN 0.4 MG SL TAB SL PRN (17:30)
[2019-10-18] MEDS ORDERED: MORPHINE SULF INJ 2 MG/ML SYRINGE 1ML IV PRN (17:30)
[2019-10-18 20:10] VITALS: BP 123/76
[2019-10-18 21:06] VITALS: BP 123/76
[2019-10-18] MEDS ORDERED: INSUINJ18 SC (21:58)
[2019-10-18] MEDS ORDERED: INSU1INJ19 SC (21:58)
[2019-10-18] MEDS ORDERED: GABAPENTIN 100 MG CAP PO SCH (22:00)
[2019-10-18] MEDS ORDERED: DEXTROSE (50%) 50ML SYRG IV PRN (22:00)
[2019-10-18] MEDS: InsuLIN REG 1unit/0.01ml Soln (100units/ml) SC SCH (22:16)
[2019-10-18] MEDS: ACCU-CHEK COMFORT CURVE STRIP VI SCH (22:17)
[2019-10-18] MEDS: hydrALAZINE HCL 10 MG TAB PO SCH (22:26)
[2019-10-18] MEDS: APIXABAN 5 MG TAB PO SCH (22:27)
[2019-10-18] MEDS: CARVEDILOL 3.125 MG TAB PO SCH (22:27)
[2019-10-18] MEDS: FAMOTIDINE 20 MG TAB PO SCH (22:28)
[2019-10-18] MEDS ORDERED: TEMAZEPAM 15 MG CAP PO ONE (23:30)
[2019-10-18] MEDS ORDERED: GABAPENTIN 100 MG CAP PO ONE (23:30)
[2019-10-19 05:00] VITALS: BP 125/83
[2019-10-19 05:48] LABS: Basophils # (auto) 0.1 10 ^3/uL (0-0.2); Basophils % (auto) 0.7 % (0.0-2.0); Eosinophils # (auto) 0.2 10 ^3/uL (0-0.8); Eosinophils % (auto) 2.7 % (0.0-7.0); Hematocrit 33.9 % (41.0-53.0); Hemoglobin 10.7 g/dL (13.5-17.5); Lymphocytes # (auto) 1.2 10 ^3/uL (0.4-5.4); Lymphocytes % (auto) 14.1 % (10.0-50.0); Mean Corpuscular Hemoglobin 27.9 pg (28.0-32.0); Mean Corpuscular Hgb Conc. 31.4 g/dL (32.0-36.0); Mean Corpuscular Volume 88.8 fL (80.0-100.0); Monocytes % (auto) 12.1 % (0.0-12.0); Neutrophils % (auto) 70.4 % (37.0-80.0); Nucleated Red Blood Cells % 0.3 %; Platelet Count (auto) 213 10^3/uL (140-450); Red Blood Cells 3.82 10^6/uL (4.5-5.90); Red Cell Distribution Width 18.2 % (11.8-14.3); White Blood Cell 8.5 10^3/uL (4.4-10.8)
[2019-10-19] MEDS ORDERED: FUROSEMIDE 100 MG/10ML VIAL IV SCH (06:00)
[2019-10-19 06:04] LABS: Magnesium 2.5 mg/dL (1.6-2.6); Potassium 3.8 mmol/L (3.5-5.1)
[2019-10-19 06:06] LABS: % Iron Saturation 10.7 % (20-55)
[2019-10-19 06:10] LABS: INR 1.35 (0.9-1.15); Partial Thromboplastin Time 30.4 sec (23.64-32.05)
[2019-10-19 06:15] LABS: Albumin 3.3 g/dL (3.4-5.0); Bilirubin, Total 0.8 mg/dL (0.2-1.0); Calcium 8.1 mg/dL (8.5-10.1); Phosphorus 4.4 mg/dL (2.5-4.90); Total Protein 7.1 g/dL (6.4-8.2)
[2019-10-19] MEDS: hydrALAZINE HCL 10 MG TAB PO SCH ×3 (06:22→23:01)
[2019-10-19] MEDS: ACCU-CHEK COMFORT CURVE STRIP VI SCH ×4 (06:56→23:03)
[2019-10-19] MEDS: InsuLIN REG 1unit/0.01ml Soln (100units/ml) SC SCH ×4 (07:04→23:10)
[2019-10-19] MEDS: CALCIUM W/VIT D (600MG/400IU) TAB PO SCH ×2 (08:48→17:33)
[2019-10-19 09:00] VITALS: BP 133/78
[2019-10-19] MEDS: PANTOPRAZOLE 40 MG TAB PO SCH (09:43)
[2019-10-19] MEDS: CARVEDILOL 3.125 MG TAB PO SCH ×2 (09:43→23:02)
[2019-10-19] MEDS: APIXABAN 5 MG TAB PO SCH ×2 (09:43→23:02)
[2019-10-19] MEDS: TAMSULOSIN HYDROCHLORIDE 0.4 MG CAP PO SCH (09:44)
[2019-10-19] MEDS ORDERED: LISINOPRIL 5 MG TAB PO SCH (10:00)
[2019-10-19] MEDS ORDERED: ASPirin 81 mg TAB PO SCH (10:00)
[2019-10-19 13:00] VITALS: BP 143/86
[2019-10-19 17:22] VITALS: BP 134/74
[2019-10-19] MEDS: DOBUTamine 1000MCG/ML 250 ML IV SCH (18:20)
[2019-10-19] MEDS: FUROSEMIDE INJECTION 100 MG in D5W 5% 100 ML IV SCH (18:20)
[2019-10-19 21:38] VITALS: BP 142/80
[2019-10-19] MEDS ORDERED: GABAPENTIN 300 MG CAP PO PRN (22:00)
[2019-10-19] MEDS ORDERED: ATORVASTATIN 20 MG TAB PO SCH (22:00)
[2019-10-19] MEDS ORDERED: INSULIN LANTUS (GLARGINE) 1 /0.01ml (100units/ml) SC SCH (22:00)
[2019-10-19] MEDS ORDERED: HYDROcodone-ACET 10/325MG TAB PO PRN (22:00)
[2019-10-19] MEDS: POTASSIUM CHL 20 Meq TABLET PO SCH (23:02)
[2019-10-19] MEDS: FAMOTIDINE 20 MG TAB PO SCH (23:03)
[2019-10-20] MEDS: DOBUTamine 1000MCG/ML 250 ML IV SCH ×2 (03:41→09:16)
[2019-10-20] MEDS: FUROSEMIDE INJECTION 100 MG in D5W 5% 100 ML IV SCH (03:42)
[2019-10-20 05:00] VITALS: BP 111/62
[2019-10-20] MEDS: hydrALAZINE HCL 10 MG TAB PO SCH (06:26)
[2019-10-20] MEDS: ACCU-CHEK COMFORT CURVE STRIP VI SCH ×2 (06:26→12:45)
[2019-10-20] MEDS: InsuLIN REG 1unit/0.01ml Soln (100units/ml) SC SCH ×2 (06:42→12:45)
[2019-10-20 07:07] LABS: Albumin 3.2 g/dL (3.4-5.0); Calcium 8.2 mg/dL (8.5-10.1); Potassium 4.1 mmol/L (3.5-5.1)
[2019-10-20 07:09] LABS: BUN/Creatinine Ratio 28.4; Bilirubin, Total 0.9 mg/dL (0.2-1.0); Total Protein 6.8 g/dL (6.4-8.2)
[2019-10-20 07:30] VITALS: BP 112/71
[2019-10-20] MEDS: CALCIUM W/VIT D (600MG/400IU) TAB PO SCH (08:12)
[2019-10-20 09:00] VITALS: BP 112/71
[2019-10-20] MEDS: APIXABAN 5 MG TAB PO SCH (09:49)
[2019-10-20] MEDS: CARVEDILOL 3.125 MG TAB PO SCH (09:49)
[2019-10-20] MEDS: POTASSIUM CHL 20 Meq TABLET PO SCH (09:49)
[2019-10-20] MEDS: TAMSULOSIN HYDROCHLORIDE 0.4 MG CAP PO SCH (09:49)
[2019-10-20] MEDS: PANTOPRAZOLE 40 MG TAB PO SCH (09:49)
[2019-10-20 13:00] VITALS: BP 124/58
[2019-10-20 13:22] VITALS: BP 140/65
== END 2019-10-20 15:00 | disposition home or self-care (01) | DRG 194 ==
LOC: EDBD 13:58 → ER 13:58 → TELE 13:59 → TELE-CENTR 19:46
PROVIDERS: ADMIT Hospitalist; ATTEND Internal Medicine
DX: I13.0 Hypertensive heart and chronic kidney disease with heart failure and stage 1 through stage 4 chronic kidney disease, or unspecified chronic kidney disease (principal); J96.20 Acute and chronic respiratory failure, unspecified whether with hypoxia or hypercapnia; K72.00 Acute and subacute hepatic failure without coma; N17.0 Acute kidney failure with tubular necrosis; I21.A1 Myocardial infarction type 2; E44.1 Mild protein-calorie malnutrition; I08.1 Rheumatic disorders of both mitral and tricuspid valves; N18.3 Chronic kidney disease, stage 3 (moderate); K76.1 Chronic passive congestion of liver; E11.21 Type 2 diabetes mellitus with diabetic nephropathy; E11.22 Type 2 diabetes mellitus with diabetic chronic kidney disease; I50.43 Acute on chronic combined systolic (congestive) and diastolic (congestive) heart failure; I42.0 Dilated cardiomyopathy; E66.9 Obesity, unspecified; R79.89 Other specified abnormal findings of blood chemistry; D63.8 Anemia in other chronic diseases classified elsewhere; N40.0 Benign prostatic hyperplasia without lower urinary tract symptoms; I25.10 Atherosclerotic heart disease of native coronary artery without angina pectoris; F17.210 Nicotine dependence, cigarettes, uncomplicated; D50.9 Iron deficiency anemia, unspecified; I25.2 Old myocardial infarction; Z86.711 Personal history of pulmonary embolism; Z83.3 Family history of diabetes mellitus; Z80.9 Family history of malignant neoplasm, unspecified; Z82.49 Family history of ischemic heart disease and other diseases of the circulatory system; Z86.718 Personal history of other venous thrombosis and embolism; Z68.32 Body mass index [BMI] 32.0-32.9, adult; E11.40 Type 2 diabetes mellitus with diabetic neuropathy, unspecified; Z95.810 Presence of automatic (implantable) cardiac defibrillator; J44.9 Chronic obstructive pulmonary disease, unspecified; Z79.01 Long term (current) use of anticoagulants; Z79.4 Long term (current) use of insulin; Z79.82 Long term (current) use of aspirin; Z79.899 Other long term (current) drug therapy; I25.5 Ischemic cardiomyopathy
CPT/HCPCS: 36415; 71045; 80053; 80061; 81001; 82962; 83036; 83540; 83550; 83735; 83880; 84100; 84484; 85025; 85610; 85730; 93005; 93306; 99291; G0378; J1815; J7060

== ENCOUNTER 2019-11-27 23:25 | Inpatient (IN) | payer MEDICAID ==
[~2019-11-27] VITALS: Ht 167.6 cm; Wt 114.1 kg
[~2019-11-27 23:25] MED LIST changes: +INSU1INJ19 SC; +INSUINJ18 SC
[2019-11-28 03:38] LABS: Albumin 3.1 g/dL (3.4-5.0); BUN/Creatinine Ratio 26.9; Bilirubin, Total 0.6 mg/dL (0.2-1.0); Calcium 7.9 mg/dL (8.5-10.1); Magnesium 2.4 mg/dL (1.6-2.6); Potassium 4.5 mmol/L (3.5-5.1); Total Protein 7.3 g/dL (6.4-8.2)
[2019-11-28 03:56] LABS: Basophils # (auto) 0 10 ^3/uL (0-0.2); Basophils % (auto) 0.6 % (0.0-2.0); Eosinophils # (auto) 0.2 10 ^3/uL (0-0.8); Hematocrit 32.9 % (41.0-53.0); Lymphocytes # (auto) 1.2 10 ^3/uL (0.4-5.4); Lymphocytes % (auto) 14.9 % (10.0-50.0); Mean Corpuscular Hemoglobin 27.9 pg (28.0-32.0); Mean Corpuscular Hgb Conc. 30.6 g/dL (32.0-36.0); Mean Corpuscular Volume 91.1 fL (80.0-100.0); Monocytes # (auto) 0.9 10 ^3/uL (0-1.3); Monocytes % (auto) 11.5 % (0.0-12.0); Neutrophils # (auto) 5.4 10 ^3/uL (1.6-8.6); Nucleated Red Blood Cells % 0.1 %; Platelet Count (auto) 190 10^3/uL (140-450); Red Cell Distribution Width 17.9 % (11.8-14.3); White Blood Cell 7.8 10^3/uL (4.4-10.8)
[2019-11-28 04:36] LABS: Urine Bacteria MANY /hpf (None Seen); Urine Blood 2+ /uL (Negative); Urine Hyaline Cast FEW /lpf (0 - 2); Urine Mucus FEW (None Seen); Urine Specific Gravity 1.015 (1.001-1.035); Urine WBC 101 /hpf (0 - 3); Urine WBC Clumps PRESENT /hpf (None Seen)
[2019-11-28] MEDS ORDERED: FUROSEMIDE 40 MG/4 ML VIAL IV SCH ×2 (06:00→10:00)
[2019-11-28] MEDS ORDERED: ALBUTEROL SULF 2.5 MG/0.5ML(0.5%) NEB SOLN NEB PRN ×2 (06:00→14:15)
[2019-11-28] MEDS ORDERED: DEXTROSE (50%) 50ML SYRG IV PRN (06:00)
[2019-11-28] MEDS ORDERED: ACETAMINOPHEN 325 MG TAB PO PRN (06:00)
[2019-11-28] MEDS ORDERED: ONDANSETRON HCL 4 MG/2 ML VIAL IV PRN (06:00)
[2019-11-28] MEDS: hydrALAZINE HCL 10 MG TAB PO SCH ×2 (06:00→14:00)
[2019-11-28] MEDS ORDERED: MORPHINE SULF INJ 2 MG/ML SYRINGE 1ML IV PRN (06:15)
[2019-11-28] MEDS ORDERED: NITROGLYCERIN 0.4 MG SL TAB SL PRN (06:15)
[2019-11-28] MEDS: ACCU-CHEK COMFORT CURVE STRIP VI SCH ×4 (06:25→23:56)
[2019-11-28] MEDS: InsuLIN REG 1unit/0.01ml Soln (100units/ml) SC SCH ×4 (06:32→23:56)
[2019-11-28] MEDS ORDERED: CARVEDILOL 3.125 MG TAB PO SCH (10:00)
[2019-11-28] MEDS: APIXABAN 5 MG TAB PO SCH ×2 (10:07→21:30)
[2019-11-28] MEDS: PANTOPRAZOLE 40 MG TAB PO SCH (10:07)
[2019-11-28] MEDS ORDERED: IPRATROPIUM BROM 0.5 MG/2.5ML INH SOL NEB PRN (14:15)
[2019-11-28 14:35] VITALS: BP 105/60
[2019-11-28] MEDS ORDERED: ERGO1CAP23 PO (16:17)
[2019-11-28] MEDS ORDERED: CARV6.2551 PO (16:17)
[2019-11-28] MEDS ORDERED: CALC0.25 PO (16:17)
[2019-11-28] MEDS ORDERED: DICL1GEL35 TOP (16:17)
[2019-11-28] MEDS ORDERED: ALLO100T PO (16:17)
[2019-11-28] MEDS ORDERED: GABA600T PO (16:17)
[2019-11-28 16:54] VITALS: BP 95/54
[2019-11-28] MEDS: TAMSULOSIN HYDROCHLORIDE 0.4 MG CAP PO SCH (17:53)
[2019-11-28] MEDS: FUROSEMIDE 40 MG/4 ML VIAL IV SCH (17:53)
[2019-11-28] MEDS ORDERED: FURO1TAB32 PO (19:12)
[2019-11-28] MEDS ORDERED: CARV3.1240 PO (19:12)
[2019-11-28] MEDS ORDERED: ALB5IS NEB (19:12)
[2019-11-28] MEDS: ATORVASTATIN 20 MG TAB PO SCH (21:30)
[2019-11-28] MEDS: CARVEDILOL 3.125 MG TAB PO SCH (21:30)
[2019-11-28 22:00] VITALS: BP 107/69
[2019-11-29] MEDS: InsuLIN REG 1unit/0.01ml Soln (100units/ml) SC SCH ×4 (05:13→23:32)
[2019-11-29] MEDS: ACCU-CHEK COMFORT CURVE STRIP VI SCH ×4 (05:14→23:32)
[2019-11-29 05:30] VITALS: BP 128/69
[2019-11-29] MEDS: FUROSEMIDE 40 MG/4 ML VIAL IV SCH (05:30)
[2019-11-29 06:04] LABS: Basophils # (auto) 0 10 ^3/uL (0-0.2); Basophils % (auto) 0.5 % (0.0-2.0); Eosinophils # (auto) 0.2 10 ^3/uL (0-0.8); Eosinophils % (auto) 3.2 % (0.0-7.0); Lymphocytes # (auto) 0.6 10 ^3/uL (0.4-5.4); Lymphocytes % (auto) 9.1 % (10.0-50.0); Mean Corpuscular Hemoglobin 28.8 pg (28.0-32.0); Mean Corpuscular Hgb Conc. 31.3 g/dL (32.0-36.0); Mean Corpuscular Volume 92.2 fL (80.0-100.0); Monocytes # (auto) 0.7 10 ^3/uL (0-1.3); Monocytes % (auto) 9.9 % (0.0-12.0); Neutrophils # (auto) 5.3 10 ^3/uL (1.6-8.6); Neutrophils % (auto) 77.3 % (37.0-80.0); Nucleated Red Blood Cells % 0.2 %; Platelet Count (auto) 155 10^3/uL (140-450); Red Blood Cells 3.47 10^6/uL (4.5-5.90); Red Cell Distribution Width 17.3 % (11.8-14.3); White Blood Cell 6.8 10^3/uL (4.4-10.8)
[2019-11-29 06:22] LABS: BUN/Creatinine Ratio 26.6; Magnesium 2.9 mg/dL (1.6-2.6); Phosphorus 4.8 mg/dL (2.5-4.90); Uric Acid 5.1 mg/dL (3.5-7.2)
[2019-11-29] MEDS: HYDROcodone-ACET 5/325MG TAB PO PRN ×2 (06:41→23:36)
[2019-11-29 08:00] VITALS: BP 47/46
[2019-11-29 09:00] VITALS: BP 87/46
[2019-11-29] MEDS: CARVEDILOL 3.125 MG TAB PO SCH ×2 (10:00→21:25)
[2019-11-29] MEDS: APIXABAN 5 MG TAB PO SCH ×2 (10:00→21:25)
[2019-11-29] MEDS: PANTOPRAZOLE 40 MG TAB PO SCH (10:31)
[2019-11-29 13:00] VITALS: BP 109/66
[2019-11-29] MEDS: metOLazone 5 MG TAB PO SCH (15:45)
[2019-11-29] MEDS: BUMETANIDE 2.5mg/10ml (0.25 mg/ml) INJ IV SCH (18:12)
[2019-11-29] MEDS: CALCIUM ACETATE 667 MG CAP PO SCH (18:13)
[2019-11-29] MEDS: TAMSULOSIN HYDROCHLORIDE 0.4 MG CAP PO SCH (18:13)
[2019-11-29] MEDS: ATORVASTATIN 20 MG TAB PO SCH (21:25)
[2019-11-29] MEDS: TEMAZEPAM 15 MG CAP PO PRN (21:25)
[2019-11-29 22:00] VITALS: BP 121/63
[2019-11-30] VITALS (7 sets, daily range): BP systolic 100–139; BP diastolic 53–83
[2019-11-30] MEDS: BUMETANIDE 2.5mg/10ml (0.25 mg/ml) INJ IV SCH ×2 (05:34→18:00)
[2019-11-30] MEDS: InsuLIN REG 1unit/0.01ml Soln (100units/ml) SC SCH ×3 (05:35→17:11)
[2019-11-30] MEDS: ACCU-CHEK COMFORT CURVE STRIP VI SCH ×3 (05:35→17:10)
[2019-11-30] MEDS: CALCIUM ACETATE 667 MG CAP PO SCH ×3 (08:10→19:46)
[2019-11-30] MEDS: PANTOPRAZOLE 40 MG TAB PO SCH (10:22)
[2019-11-30] MEDS: CARVEDILOL 3.125 MG TAB PO SCH ×2 (10:22→22:28)
[2019-11-30 10:23] LABS: Hemoglobin 10.1 g/dL (13.5-17.5)
[2019-11-30] MEDS: APIXABAN 5 MG TAB PO SCH (10:23)
[2019-11-30] MEDS: metOLazone 5 MG TAB PO SCH (10:23)
[2019-11-30 10:25] LABS: Hematocrit 32.2 % (41.0-53.0)
[2019-11-30 10:44] LABS: Calcium 8.6 mg/dL (8.5-10.1); Potassium 4.6 mmol/L (3.5-5.1)
[2019-11-30 10:47] LABS: BUN/Creatinine Ratio 28.3
[2019-11-30] MEDS ORDERED: cefTRIAXone 1GM/50ML D5W 50 ML IV ONE (12:45)
[2019-11-30] MEDS ORDERED: LIDOCAINE 2% JELLY 11ml (GLYDO) UR ONE (16:15)
[2019-11-30] MEDS: HYDROcodone-ACET 5/325MG TAB PO PRN ×2 (17:16→22:30)
[2019-11-30] MEDS: TAMSULOSIN HYDROCHLORIDE 0.4 MG CAP PO SCH (19:46)
[2019-11-30 20:31] LABS: Hematocrit 32.3 % (41.0-53.0); Hemoglobin 10.1 g/dL (13.5-17.5)
[2019-11-30 21:18] LABS: Protein, Urine 496.8 mg/dL (0.0-11.9)
[2019-11-30] MEDS ORDERED: HYDROcodone-ACET 5/325MG TAB PO PRN (22:15)
[2019-11-30] MEDS: TEMAZEPAM 15 MG CAP PO PRN (22:27)
[2019-11-30] MEDS: ATORVASTATIN 20 MG TAB PO SCH (22:28)
[2019-12-01] VITALS: BP 105/62
[2019-12-01] MEDS: ACCU-CHEK COMFORT CURVE STRIP VI SCH
[2019-12-01] MEDS: InsuLIN REG 1unit/0.01ml Soln (100units/ml) SC SCH
[2019-12-01 03:04] VITALS: BP 130/73
[2019-12-01 03:10] VITALS: BP 85/52
[2019-12-01] MEDS ORDERED: DOBUTamine 1000MCG/ML 250 ML IV ONE (03:18)
[2019-12-01 03:30] VITALS: BP 63/33
[2019-12-01] MEDS ORDERED: NOREPINEPHRINE 8 MG/250ML KIT 250 ML IV ONE (03:31)
[2019-12-01] MEDS ORDERED: FUROSEMIDE 20 MG/2 ML VIAL ONE (03:33)
[2019-12-01] MEDS ORDERED: HEPARIN 1,000 UNITS/ml 1ML VIAL ONE ×2 (03:40→03:54)
[2019-12-01] MEDS ORDERED: EPINEPHrine HCL 250 ML IV ONE (03:42)
[2019-12-01] MEDS ORDERED: cefTRIAXone 1GM/50ML D5W 50 ML IV SCH (09:00)
[2019-12-01] MEDS ORDERED: SODIUM BICARBONATE 8.4% INJ 50ML SYRINGE IV ONE (09:59)
[2019-12-01] MEDS ORDERED: EPINEPHrine HCL 1 MG/10 ML SYRG IV ONE (09:59)
[2019-12-01] MEDS ORDERED: CALCIUM CHLOR(10%) 100MG/ML 10ML SYRINGE IV ONE (09:59)
== END 2019-12-01 08:40 | disposition expired | DRG 194 ==
LOC: EDBD 23:25 → ER 23:25 → TELE 23:26 → TELE-WESTW 11-28 16:11 → ICU WEST 12-01 03:01 → UNDODISIN 12-01 04:00
PROVIDERS: ADMIT Nurse Practitioner; ATTEND Internal Medicine
PROC: 02HV33Z Insertion of Infusion Device into Superior Vena Cava, Percutaneous Approach (ICD-10-PCS; principal; 2019-12-01)
PROC: 0BH17EZ Insertion of Endotracheal Airway into Trachea, Via Natural or Artificial Opening (ICD-10-PCS; 2019-12-01)
DX: I13.0 Hypertensive heart and chronic kidney disease with heart failure and stage 1 through stage 4 chronic kidney disease, or unspecified chronic kidney disease (principal); J96.20 Acute and chronic respiratory failure, unspecified whether with hypoxia or hypercapnia; N17.0 Acute kidney failure with tubular necrosis; E11.21 Type 2 diabetes mellitus with diabetic nephropathy; D68.59 Other primary thrombophilia; N18.4 Chronic kidney disease, stage 4 (severe); E11.22 Type 2 diabetes mellitus with diabetic chronic kidney disease; I50.23 Acute on chronic systolic (congestive) heart failure; J44.9 Chronic obstructive pulmonary disease, unspecified; Z95.810 Presence of automatic (implantable) cardiac defibrillator; E66.9 Obesity, unspecified; D63.1 Anemia in chronic kidney disease; R31.0 Gross hematuria; N39.0 Urinary tract infection, site not specified; T83.83XA Hemorrhage due to genitourinary prosthetic devices, implants and grafts, initial encounter; F17.200 Nicotine dependence, unspecified, uncomplicated; Y84.6 Urinary catheterization as the cause of abnormal reaction of the patient, or of later complication, without mention of misadventure at the time of the procedure; Z86.718 Personal history of other venous thrombosis and embolism; Z82.49 Family history of ischemic heart disease and other diseases of the circulatory system; Z79.899 Other long term (current) drug therapy; Z79.4 Long term (current) use of insulin; Z68.41 Body mass index [BMI] 40.0-44.9, adult
CPT/HCPCS: 36415; 71045; 74176; 80048; 80053; 81001; 82306; 82570; 82728; 82962; 83735; 83880; 83970; 84100; 84156; 84300; 84443; 84484; 84550; 85014; 85018; 85025; 87040; 87070; 87086; 87088; 87186; 87804; 87880; 92950; 93005; 94002; 96374; G0378; J0171; J0696; J1815